=== PATIENT | female | born 1955 | race Two or more races ===

== ENCOUNTER 2017-04-04 21:13 | Inpatient (IN) | payer OTHER, MEDICAID ==
[~2017-04-04] VITALS: Ht 157.5 cm; Wt 48.4 kg
[~2017-04-04 21:13] MED LIST: ALBU1.257 NEB; AMLO10TA2 PO; ASP81EC PO; CARV25TA55 PO; FURO40TA4 PO; HYDR-2651 PO; LOSA100T27 PO; OMEP20CA74 PO; OXYB15TA12 PO
[2017-04-04 21:46] LABS: Basophils # (auto) 0 uL; Basophils % (auto) 0.4 % (0.0-2.0); CONDITION Y; DEFINITIVE SEE PRINTOUT; Eosinophils # (auto) 0.4 uL; Eosinophils % (auto) 3.9 % (0.0-7.0); Hematocrit 42.3 % (36.0-46.0); Hemoglobin 13.4 g/dL (12.2-16.2); Lymphocytes # (auto) 1.3 uL; Lymphocytes % (auto) 12.6 % (10.0-50.0); Mean Corpuscular Hemoglobin 26.1 pg (28.0-32.0); Mean Corpuscular Hgb Conc. 31.5 g/dL (32.0-36.0); Mean Corpuscular Volume 82.7 fL (80.0-100.0); Mean Platelet Volume 8.2 fL (7.4-10.4); Monocytes # (auto) 0.4 uL; Monocytes % (auto) 4.3 % (0.0-12.0); Neutrophils # (auto) 7.9 uL; Neutrophils % (auto) 78.8 % (37.0-80.0); Platelet Count (auto) 341 10^3/uL (140-450)
[2017-04-04 21:58] LABS: INR 0.95 (0.9-1.15); Partial Thromboplastin Time 25.5 sec (22.64-33.71); Prothrombin Time 10.4 sec (9.37-12.3)
[2017-04-04 22:15] LABS: Albumin 2.9 g/dL (3.4-5.0); BUN/Creatinine Ratio 25.3; Bilirubin, Total 0.4 mg/dL (0.2-1.0); Calcium 8.5 mg/dL (8.5-10.1); Magnesium 1.6 mg/dL (1.6-2.6); Potassium 3.5 mmol/L (3.5-5.1); Total Protein 6.6 g/dL (6.4-8.2)
[2017-04-04 22:23] LABS: B-Type Natriuretic Peptide 827.58 pg/mL (0-100)
[2017-04-04 22:26] LABS: Temperature: 22.5 C (20.0-25.0)
[2017-04-04] MEDS ORDERED: SODIUM CHLORIDE 0.9% 1,000 ML IV ONE (23:15)
[2017-04-04] MEDS ORDERED: ONDANSETRON HCL 4 MG/2 ML VIAL IV ONE (23:15)
[2017-04-04] MEDS ORDERED: MORPHINE SULFATE 4 MG/ML SYRG IV ONE (23:15)
[2017-04-05] VITALS (8 sets, daily range): BP systolic 116–148; BP diastolic 71–85
[2017-04-05] MEDS ORDERED: FUROSEMIDE 20 MG/2 ML VIAL IV ONE
[2017-04-05 00:44] LABS: Urine Bilirubin Negative (Negative); Urine Blood Negative /uL (Negative); Urine Color Yellow (Yellow); Urine Glucose Normal (Normal); Urine Hyaline Cast FEW /lpf (0 - 2); Urine Ketone Negative (Negative); Urine Nitrite Negative (Negative); Urine RBC 1 /hpf (0 - 4); Urine Squamous Epithelial Cell FEW /hpf (<5); Urine Urobilinogen Normal (Negative)
[2017-04-05] MEDS ORDERED: ONDANSETRON HCL 4 MG/2 ML VIAL IV PRN (01:30)
[2017-04-05] MEDS ORDERED: ACETAMINOPHEN 325 MG TAB PO PRN (01:30)
[2017-04-05] MEDS ORDERED: NITROGLYCERIN 0.4 MG SL TAB SL PRN (01:30)
[2017-04-05] MEDS ORDERED: MORPHINE SULF INJ 2 MG/ML SYRINGE 1ML IV PRN (01:30)
[2017-04-05] MEDS ORDERED: IPRATROPIUM BROM 0.5 MG/2.5ML INH SOL NEB PRN (01:30)
[2017-04-05] MEDS ORDERED: cefTRIAXone 1GM/50ML D5W 50 ML IV ONE (01:30)
[2017-04-05] MEDS: HYDROcodone-ACET 5/325MG TAB PO PRN ×2 (01:58→18:12)
[2017-04-05] MEDS: MORPHINE SULF INJ 2 MG/ML SYRINGE 1ML IV PRN ×3 (03:09→21:07)
[2017-04-05] MEDS ORDERED: LISI-275 PO (04:01)
[2017-04-05] MEDS ORDERED: POTA10TA79 PO (04:01)
[2017-04-05] MEDS ORDERED: ISO60SRT PO (04:01)
[2017-04-05] MEDS ORDERED: LORA1CAP PO (04:01)
[2017-04-05] MEDS: hydrALAZINE HCL 25 MG TAB PO SCH ×2 (08:22→22:00)
[2017-04-05] MEDS: OXYBUTYNIN CHL 5 MG TAB PO SCH (08:26)
[2017-04-05] MEDS: LOSARTAN POTASSIUM 50 MG TAB PO SCH (08:26)
[2017-04-05] MEDS: ASPirin 81 mg TAB PO SCH (08:27)
[2017-04-05] MEDS: PANTOPRAZOLE 40 MG TAB PO SCH (08:27)
[2017-04-05] MEDS: FUROSEMIDE 40 MG TAB PO SCH (08:27)
[2017-04-05] MEDS: ENOXAPARIN SOD 40 MG/0.4 ML SYRINGE SC SCH (08:27)
[2017-04-05] MEDS: CARVEDILOL 12.5 MG TAB PO SCH ×2 (08:28→22:07)
[2017-04-05] MEDS ORDERED: GASTROGRAFIN 120 ML SOL ONE (14:30)
[2017-04-05] MEDS: BOOST PLUS 8 ounce PO SCH (18:10)
[2017-04-05] MEDS ORDERED: cefTRIAXone 1GM/50ML D5W 50 ML IV SCH (22:00)
[2017-04-05] MEDS ORDERED: ATORVASTATIN 20 MG TAB PO SCH (22:00)
[2017-04-06] MEDS: MORPHINE SULF INJ 2 MG/ML SYRINGE 1ML IV PRN ×2 (04:05→10:06)
[2017-04-06 04:53] VITALS: BP 127/61
[2017-04-06 06:05] LABS: Basophils # (auto) 0 uL; Basophils % (auto) 0.5 % (0.0-2.0); CONDITION Y; DEFINITIVE SEE PRINTOUT; Eosinophils # (auto) 0.3 uL; Eosinophils % (auto) 6.9 % (0.0-7.0); Hematocrit 36.7 % (36.0-46.0); Hemoglobin 11.8 g/dL (12.2-16.2); Lymphocytes # (auto) 1.6 uL; Lymphocytes % (auto) 32.1 % (10.0-50.0); Mean Corpuscular Hemoglobin 26.5 pg (28.0-32.0); Mean Corpuscular Hgb Conc. 32.1 g/dL (32.0-36.0); Mean Corpuscular Volume 82.4 fL (80.0-100.0); Mean Platelet Volume 8.2 fL (7.4-10.4); Monocytes # (auto) 0.4 uL; Monocytes % (auto) 8.4 % (0.0-12.0); Neutrophils # (auto) 2.6 uL; Neutrophils % (auto) 52.1 % (37.0-80.0); Platelet Count (auto) 305 10^3/uL (140-450); Red Cell Distribution Width 18.7 % (11.6-16.0); White Blood Cell 4.9 10^3/uL (4.4-10.8)
[2017-04-06 06:53] LABS: Albumin 2.7 g/dL (3.4-5.0); BUN/Creatinine Ratio 20.9; Bilirubin, Total 0.3 mg/dL (0.2-1.0); Calcium 8.6 mg/dL (8.5-10.1); Magnesium 1.9 mg/dL (1.6-2.6); Phosphorus 3.6 mg/dL (2.5-4.90); Potassium 3.7 mmol/L (3.5-5.1); Total Protein 6.4 g/dL (6.4-8.2)
[2017-04-06 09:00] VITALS: BP 122/84
[2017-04-06] MEDS ORDERED: metroNIDAZOLE 500 MG TAB PO ONE (09:15)
[2017-04-06] MEDS ORDERED: AMOXICILLIN/CLAVUL 875 MG TAB PO ONE (09:15)
[2017-04-06] MEDS: FUROSEMIDE 40 MG TAB PO SCH (10:00)
[2017-04-06] MEDS: hydrALAZINE HCL 25 MG TAB PO SCH (10:06)
[2017-04-06] MEDS: ENOXAPARIN SOD 40 MG/0.4 ML SYRINGE SC SCH (10:06)
[2017-04-06] MEDS: CARVEDILOL 12.5 MG TAB PO SCH (10:06)
[2017-04-06] MEDS: LOSARTAN POTASSIUM 50 MG TAB PO SCH (10:07)
[2017-04-06] MEDS: ASPirin 81 mg TAB PO SCH (10:07)
[2017-04-06] MEDS: PANTOPRAZOLE 40 MG TAB PO SCH (10:07)
[2017-04-06] MEDS: OXYBUTYNIN CHL 5 MG TAB PO SCH (10:08)
[2017-04-06] MEDS: BOOST PLUS 8 ounce PO SCH ×2 (11:57→12:00)
[2017-04-06 13:00] VITALS: BP 123/76
[2017-04-06 15:10] VITALS: BP 123/76
[2017-04-09] MEDS ORDERED: ALBUAER3 IN (02:00)
[2017-04-09] MEDS ORDERED: AMOX200C PO (02:00)
[2017-04-09] MEDS ORDERED: ERGO1CAP6 PO (02:00)
[2017-04-09] MEDS ORDERED: METR500T14 PO (02:00)
[2017-04-10] MEDS ORDERED: SUCR1TAB38 OR (16:12)
== END 2017-04-06 16:55 | disposition home or self-care (01) | DRG 280 ==
LOC: EDBD 21:13 → ER 21:26 → TELE 21:27 → TELE-CENTR 04-05 02:25
PROVIDERS: ADMIT Nurse Practitioner; ATTEND Internal Medicine
DX: I13.0 Hypertensive heart and chronic kidney disease with heart failure and stage 1 through stage 4 chronic kidney disease, or unspecified chronic kidney disease (principal); I50.43 Acute on chronic combined systolic (congestive) and diastolic (congestive) heart failure; I21.3 ST elevation (STEMI) myocardial infarction of unspecified site; E11.22 Type 2 diabetes mellitus with diabetic chronic kidney disease; J98.11 Atelectasis; N39.0 Urinary tract infection, site not specified; Z95.1 Presence of aortocoronary bypass graft; Z90.710 Acquired absence of both cervix and uterus; I08.1 Rheumatic disorders of both mitral and tricuspid valves; K52.9 Noninfective gastroenteritis and colitis, unspecified; F15.10 Other stimulant abuse, uncomplicated; I25.10 Atherosclerotic heart disease of native coronary artery without angina pectoris; I25.5 Ischemic cardiomyopathy; J44.9 Chronic obstructive pulmonary disease, unspecified; K21.9 Gastro-esophageal reflux disease without esophagitis; K57.30 Diverticulosis of large intestine without perforation or abscess without bleeding; K62.89 Other specified diseases of anus and rectum; N18.9 Chronic kidney disease, unspecified; K29.70 Gastritis, unspecified, without bleeding; M19.90 Unspecified osteoarthritis, unspecified site; N20.0 Calculus of kidney; Z83.3 Family history of diabetes mellitus; I25.2 Old myocardial infarction; Z90.49 Acquired absence of other specified parts of digestive tract; Z95.810 Presence of automatic (implantable) cardiac defibrillator
CPT/HCPCS: 36415; 71010; 74176; 74250; 80053; 80307; 81001; 82150; 83690; 83735; 83880; 84100; 84484; 85025; 85610; 85730; 93005; 93306; 96361; 96365; 96375; J0696; J2405

== ENCOUNTER 2017-04-24 03:59 | Inpatient (IN) | payer MEDICAID, OTHER ==
[~2017-04-24] VITALS: Ht 157.5 cm; Wt 53.7 kg
[~2017-04-24 03:59] MED LIST changes: -ALBU1.257 NEB; +ALBUAER3 IN; -AMLO10TA2 PO; +ERGO1CAP6 PO; -HYDR-2651 PO; +ISO60SRT PO; +LISI-275 PO; +LORA1CAP PO; -LOSA100T27 PO; +METR500T14 PO; -OXYB15TA12 PO; +POTA10TA79 PO; +SUCR1TAB38 OR
[2017-04-24 04:30] LABS: Basophils # (auto) 0.1 uL; Basophils % (auto) 1.3 % (0.0-2.0); Eosinophils # (auto) 0.4 uL; Eosinophils % (auto) 6.4 % (0.0-7.0); Hematocrit 37.9 % (36.0-46.0); Hemoglobin 12.2 g/dL (12.2-16.2); Lymphocytes # (auto) 1.4 uL; Mean Corpuscular Hemoglobin 26.6 pg (28.0-32.0); Mean Corpuscular Hgb Conc. 32.2 g/dL (32.0-36.0); Mean Corpuscular Volume 82.5 fL (80.0-100.0); Monocytes # (auto) 0.4 uL; Monocytes % (auto) 6.2 % (0.0-12.0); Neutrophils # (auto) 4.6 uL; Neutrophils % (auto) 66.1 % (37.0-80.0); Nucleated Red Blood Cells % 0.1 %; Platelet Count (auto) 329 10^3/uL (140-450); Red Cell Distribution Width 19.9 % (11.6-16.0)
[2017-04-24] MEDS ORDERED: ONDANSETRON HCL 4 MG/2 ML VIAL IV ONE (04:45)
[2017-04-24] MEDS ORDERED: MORPHINE SULF INJ 2 MG/ML SYRINGE 1ML IV ONE (04:45)
[2017-04-24 04:46] LABS: INR 0.92 (0.9-1.15); Partial Thromboplastin Time 24.7 sec (22.64-33.71)
[2017-04-24 05:05] LABS: Albumin 2.8 g/dL (3.4-5.0); BUN/Creatinine Ratio 26.7; Bilirubin, Total 0.2 mg/dL (0.2-1.0); Calcium 8.7 mg/dL (8.5-10.1); Magnesium 1.9 mg/dL (1.6-2.6); Potassium 3.9 mmol/L (3.5-5.1); Total Protein 6.7 g/dL (6.4-8.2)
[2017-04-24 05:20] LABS: Temperature: 22.2 C (20.0-25.0)
[2017-04-24 05:50] LABS: Urine Bilirubin Negative (Negative); Urine Blood Negative /uL (Negative); Urine Ca Oxalate Crystal FEW (None Seen); Urine Color Yellow (Yellow); Urine Glucose Normal (Normal); Urine Ketone Negative (Negative); Urine Mucus FEW (None Seen); Urine Nitrite Negative (Negative); Urine RBC 5 /hpf (0 - 4); Urine Squamous Epithelial Cell FEW /hpf (<5); Urine Urobilinogen Normal (Negative)
[2017-04-24] MEDS ORDERED: CARVEDILOL 12.5 MG TAB PO ONE (06:00)
[2017-04-24] MEDS ORDERED: ACETAMINOPHEN 325 MG TAB PO PRN (07:15)
[2017-04-24] MEDS ORDERED: NITROGLYCERIN 0.4 MG SL TAB SL PRN (07:15)
[2017-04-24] MEDS ORDERED: DEXTROSE (50%) 50ML SYRG IV PRN (07:15)
[2017-04-24] MEDS ORDERED: ENOXAPARIN SOD 60 MG/0.6 ML SYRINGE SC SCH ×2 (07:30→22:00)
[2017-04-24] MEDS: SODIUM CHLORIDE 0.9% 1,000 ML IV SCH (07:41)
[2017-04-24] MEDS: cefTRIAXone 1GM/50ML D5W 50 ML IV SCH (07:42)
[2017-04-24] MEDS: POTASSIUM CHL 10 Meq TABLET PO SCH (09:35)
[2017-04-24] MEDS: FUROSEMIDE 40 MG TAB PO SCH (09:36)
[2017-04-24] MEDS: ISOSORBIDE MONONITRATE 60 MG TAB PO SCH (09:37)
[2017-04-24] MEDS: LISINOPRIL 5 MG TAB PO SCH (09:37)
[2017-04-24 09:57] VITALS: BP 149/93
[2017-04-24] MEDS ORDERED: ASPirin 81 mg TAB PO SCH (10:00)
[2017-04-24] MEDS ORDERED: FAMOTIDINE 20 MG TAB PO SCH (10:00)
[2017-04-24] MEDS ORDERED: NITR0.4S29 SL (10:24)
[2017-04-24] MEDS ORDERED: ACET250T3 PO (10:24)
[2017-04-24] MEDS ORDERED: FLUT500M2 IN (10:24)
[2017-04-24] MEDS: MORPHINE SULF INJ 2 MG/ML SYRINGE 1ML IV PRN ×2 (11:06→17:45)
[2017-04-24] MEDS: InsuLIN REG 1unit/0.01ml Soln (100units/ml) SC SCH ×3 (11:24→22:20)
[2017-04-24] MEDS: ACCU-CHEK COMFORT CURVE STRIP VI SCH ×3 (11:24→22:19)
[2017-04-24 11:44] VITALS: BP 131/78
[2017-04-24 17:00] VITALS: BP 121/76
[2017-04-24] MEDS ORDERED: CLOPIDOGREL BISULFATE 75 MG TAB PO ONE (17:30)
[2017-04-24] MEDS: SUCRALFATE 1 GM TAB PO SCH (17:32)
[2017-04-24 19:34] VITALS: BP 120/71
[2017-04-24] MEDS: ATORVASTATIN 20 MG TAB PO SCH (21:30)
[2017-04-24] MEDS: CARVEDILOL 12.5 MG TAB PO SCH (22:00)
[2017-04-25] VITALS: BP 150/88
[2017-04-25 01:12] LABS: Albumin 2.6 g/dL (3.4-5.0); BUN/Creatinine Ratio 21.7; Calcium 8.2 mg/dL (8.5-10.1); Potassium 4.2 mmol/L (3.5-5.1)
[2017-04-25 01:31] LABS: Bilirubin, Total 0.3 mg/dL (0.2-1.0); Total Protein 6.4 g/dL (6.4-8.2)
[2017-04-25] MEDS: MORPHINE SULF INJ 2 MG/ML SYRINGE 1ML IV PRN ×2 (01:49→10:00)
[2017-04-25 04:00] VITALS: BP 139/84
[2017-04-25 05:20] LABS: Basophils # (auto) 0.1 uL; Eosinophils # (auto) 0.6 uL; Eosinophils % (auto) 8.1 % (0.0-7.0); Hematocrit 35.5 % (36.0-46.0); Hemoglobin 11.7 g/dL (12.2-16.2); Lymphocytes # (auto) 1.8 uL; Lymphocytes % (auto) 23.4 % (10.0-50.0); Mean Corpuscular Hemoglobin 27.3 pg (28.0-32.0); Mean Corpuscular Hgb Conc. 32.9 g/dL (32.0-36.0); Mean Corpuscular Volume 82.9 fL (80.0-100.0); Mean Platelet Volume 8.2 fL (7.4-10.4); Monocytes # (auto) 0.8 uL; Monocytes % (auto) 9.9 % (0.0-12.0); Neutrophils # (auto) 4.4 uL; Neutrophils % (auto) 57.6 % (37.0-80.0); Nucleated Red Blood Cells % 0.1 %; Platelet Count (auto) 336 10^3/uL (140-450); White Blood Cell 7.6 10^3/uL (4.4-10.8)
[2017-04-25 05:28] LABS: Red Cell Distribution Width 20.1 % (11.6-16.0)
[2017-04-25] MEDS: InsuLIN REG 1unit/0.01ml Soln (100units/ml) SC SCH ×4 (06:00→23:42)
[2017-04-25] MEDS: ACCU-CHEK COMFORT CURVE STRIP VI SCH ×4 (06:26→23:42)
[2017-04-25] MEDS: SUCRALFATE 1 GM TAB PO SCH ×3 (06:26→16:10)
[2017-04-25] MEDS: SODIUM CHLORIDE 0.9% 1,000 ML IV SCH (06:27)
[2017-04-25] MEDS: ASPirin 81 mg TAB PO SCH (06:51)
[2017-04-25] MEDS: CLOPIDOGREL BISULFATE 75 MG TAB PO SCH ×2 (06:52→12:08)
[2017-04-25] MEDS: ENOXAPARIN SOD 60 MG/0.6 ML SYRINGE SC SCH ×2 (06:52→22:47)
[2017-04-25 07:30] VITALS: BP 155/90
[2017-04-25] MEDS: cefTRIAXone 1GM/50ML D5W 50 ML IV SCH (07:56)
[2017-04-25] MEDS: FUROSEMIDE 40 MG TAB PO SCH (10:00)
[2017-04-25] MEDS: POTASSIUM CHL 10 Meq TABLET PO SCH (10:00)
[2017-04-25] MEDS: PANTOPRAZOLE 40 MG TAB PO SCH (10:00)
[2017-04-25] MEDS ORDERED: CLOPIDOGREL BISULFATE 75 MG TAB PO SCH (10:00)
[2017-04-25 11:41] LABS: Anisocytosis Slight
[2017-04-25 11:42] LABS: Burr Cells FEW; Hypochromia Slight; Ovalocytes FEW; Platelet Estimate Adequate
[2017-04-25] MEDS ORDERED: IOHEXOL 350 MG/ML 100ML IJ ONE ×3 (11:48→14:13)
[2017-04-25] MEDS ORDERED: LIDOCAINE 2%HCL (LOCAL ANESTH.) INJ 20ML MDV ONE ×2 (11:49→14:13)
[2017-04-25 12:00] VITALS: BP 152/98
[2017-04-25] MEDS: ISOSORBIDE MONONITRATE 60 MG TAB PO SCH (12:09)
[2017-04-25] MEDS: LISINOPRIL 5 MG TAB PO SCH (12:10)
[2017-04-25] MEDS: CARVEDILOL 12.5 MG TAB PO SCH ×2 (12:10→22:35)
[2017-04-25] MEDS ORDERED: ANGIOMAX 250 MG VIAL IV ONE (12:46)
[2017-04-25] MEDS ORDERED: SODIUM CHL 0.9% 50 ML ONE (12:47)
[2017-04-25] MEDS ORDERED: MIDAZOLAM HCL 1MG/1ML-2 ML VIAL ONE (12:47)
[2017-04-25] MEDS ORDERED: fentaNYL CITRATE 100 MCG/2 ML VL ONE (12:47)
[2017-04-25] MEDS ORDERED: EPTIFIBATIDE INJ (2MG/ML) 10ML VIAL IV ONE (13:04)
[2017-04-25 16:00] VITALS: BP 139/80
[2017-04-25] MEDS: HYDROcodone-ACET 5/325MG TAB PO PRN ×2 (16:11→22:57)
[2017-04-25] MEDS: ONDANSETRON HCL 4 MG/2 ML VIAL IV PRN ×4 (18:50→20:46)
[2017-04-25 19:45] VITALS: BP 115/64
[2017-04-25] MEDS: ATORVASTATIN 20 MG TAB PO SCH (22:31)
[2017-04-26 05:53] LABS: Basophils # (auto) 0.1 uL; Eosinophils # (auto) 0.4 uL; Eosinophils % (auto) 7.3 % (0.0-7.0); Hemoglobin 11.3 g/dL (12.2-16.2); Lymphocytes # (auto) 1.2 uL; Lymphocytes % (auto) 20.6 % (10.0-50.0); Mean Corpuscular Hemoglobin 26.8 pg (28.0-32.0); Mean Corpuscular Hgb Conc. 32.3 g/dL (32.0-36.0); Mean Corpuscular Volume 82.8 fL (80.0-100.0); Monocytes # (auto) 0.5 uL; Monocytes % (auto) 8.2 % (0.0-12.0); Neutrophils # (auto) 3.7 uL; Neutrophils % (auto) 62.9 % (37.0-80.0); Platelet Count (auto) 302 10^3/uL (140-450); Red Cell Distribution Width 19.4 % (11.6-16.0); White Blood Cell 5.8 10^3/uL (4.4-10.8)
[2017-04-26] MEDS: InsuLIN REG 1unit/0.01ml Soln (100units/ml) SC SCH ×4 (06:00→23:43)
[2017-04-26] MEDS: ACCU-CHEK COMFORT CURVE STRIP VI SCH ×4 (06:19→23:44)
[2017-04-26] MEDS: SUCRALFATE 1 GM TAB PO SCH ×3 (06:22→16:05)
[2017-04-26] MEDS: HYDROcodone-ACET 5/325MG TAB PO PRN ×4 (06:23→22:05)
[2017-04-26 06:24] LABS: BUN/Creatinine Ratio 23.7; Calcium 8.4 mg/dL (8.5-10.1); Magnesium 2.1 mg/dL (1.6-2.6); Phosphorus 4.4 mg/dL (2.5-4.90); Potassium 4.8 mmol/L (3.5-5.1)
[2017-04-26] MEDS: SODIUM CHLORIDE 0.9% 1,000 ML IV SCH (07:10)
[2017-04-26 07:30] VITALS: BP 124/54
[2017-04-26] MEDS: cefTRIAXone 1GM/50ML D5W 50 ML IV SCH (08:17)
[2017-04-26] MEDS: POTASSIUM CHL 10 Meq TABLET PO SCH (10:36)
[2017-04-26] MEDS: LISINOPRIL 5 MG TAB PO SCH (10:37)
[2017-04-26] MEDS: ENOXAPARIN SOD 60 MG/0.6 ML SYRINGE SC SCH ×2 (10:37→21:42)
[2017-04-26] MEDS: ISOSORBIDE MONONITRATE 60 MG TAB PO SCH (10:38)
[2017-04-26] MEDS: ASPirin 81 mg TAB PO SCH (10:39)
[2017-04-26] MEDS: PANTOPRAZOLE 40 MG TAB PO SCH (10:40)
[2017-04-26] MEDS: FUROSEMIDE 40 MG TAB PO SCH (10:40)
[2017-04-26] MEDS: CARVEDILOL 12.5 MG TAB PO SCH ×2 (10:40→22:10)
[2017-04-26 11:59] VITALS: BP 137/73
[2017-04-26 16:00] VITALS: BP 121/65
[2017-04-26 20:00] VITALS: BP 116/62
[2017-04-26] MEDS: ATORVASTATIN 20 MG TAB PO SCH (21:42)
[2017-04-27] MEDS: MORPHINE SULF INJ 2 MG/ML SYRINGE 1ML IV PRN (04:22)
[2017-04-27 04:57] LABS: Basophils # (auto) 0 uL; Basophils % (auto) 0.9 % (0.0-2.0); Eosinophils # (auto) 0.4 uL; Eosinophils % (auto) 8.2 % (0.0-7.0); Hematocrit 34.5 % (36.0-46.0); Hemoglobin 11.1 g/dL (12.2-16.2); Lymphocytes # (auto) 1.4 uL; Mean Corpuscular Hemoglobin 26.7 pg (28.0-32.0); Mean Corpuscular Hgb Conc. 32.1 g/dL (32.0-36.0); Mean Corpuscular Volume 83.2 fL (80.0-100.0); Mean Platelet Volume 7.4 fL (6.9-10.8); Monocytes # (auto) 0.4 uL; Monocytes % (auto) 8.4 % (0.0-12.0); Neutrophils # (auto) 2.8 uL; Neutrophils % (auto) 54.5 % (37.0-80.0); Nucleated Red Blood Cells % 0.1 %; Platelet Count (auto) 285 10^3/uL (140-450); Red Cell Distribution Width 19.8 % (11.8-14.3); White Blood Cell 5.1 10^3/uL (4.4-10.8)
[2017-04-27 05:25] LABS: BUN/Creatinine Ratio 25.5; Calcium 8.6 mg/dL (8.5-10.1); Magnesium 1.9 mg/dL (1.6-2.6); Potassium 4.3 mmol/L (3.5-5.1)
[2017-04-27] MEDS: InsuLIN REG 1unit/0.01ml Soln (100units/ml) SC SCH ×2 (06:00→11:56)
[2017-04-27] MEDS: ACCU-CHEK COMFORT CURVE STRIP VI SCH ×2 (06:08→11:56)
[2017-04-27] MEDS: SUCRALFATE 1 GM TAB PO SCH ×2 (07:47→11:55)
[2017-04-27 08:00] VITALS: BP 136/76
[2017-04-27] MEDS: SODIUM CHLORIDE 0.9% 1,000 ML IV SCH (08:21)
[2017-04-27] MEDS: HYDROcodone-ACET 5/325MG TAB PO PRN ×2 (08:27→12:04)
[2017-04-27] MEDS: cefTRIAXone 1GM/50ML D5W 50 ML IV SCH (09:31)
[2017-04-27] MEDS: LISINOPRIL 5 MG TAB PO SCH (09:36)
[2017-04-27] MEDS: PANTOPRAZOLE 40 MG TAB PO SCH (09:36)
[2017-04-27] MEDS: CLOPIDOGREL BISULFATE 75 MG TAB PO SCH (09:37)
[2017-04-27] MEDS: ASPirin 81 mg TAB PO SCH (09:37)
[2017-04-27] MEDS: CARVEDILOL 12.5 MG TAB PO SCH (09:37)
[2017-04-27] MEDS: ENOXAPARIN SOD 60 MG/0.6 ML SYRINGE SC SCH (09:38)
[2017-04-27] MEDS: FUROSEMIDE 40 MG TAB PO SCH (09:38)
[2017-04-27] MEDS: POTASSIUM CHL 10 Meq TABLET PO SCH (09:38)
[2017-04-27] MEDS: ISOSORBIDE MONONITRATE 60 MG TAB PO SCH (09:38)
[2017-04-27 10:00] VITALS: BP 136/76
[2017-04-27 12:00] VITALS: BP 111/63
== END 2017-04-27 13:07 | disposition home health service (06) | DRG 174 ==
LOC: ER 03:59 → EDBD 03:59 → TELE 04:00 → TELE-WESTW 09:22 → DOU IN ICU 20:27
PROVIDERS: ADMIT Nurse Practitioner; ATTEND Internal Medicine
PROC: 027034Z Dilation of Coronary Artery, One Artery with Drug-eluting Intraluminal Device, Percutaneous Approach (ICD-10-PCS; principal; 2017-04-25)
PROC: 4A023N7 Measurement of Cardiac Sampling and Pressure, Left Heart, Percutaneous Approach (ICD-10-PCS; 2017-04-25)
PROC: B2111ZZ Fluoroscopy of Multiple Coronary Arteries using Low Osmolar Contrast (ICD-10-PCS; 2017-04-25)
PROC: B2181ZZ Fluoroscopy of Left Internal Mammary Bypass Graft using Low Osmolar Contrast (ICD-10-PCS; 2017-04-25)
PROC: B41F1ZZ Fluoroscopy of Right Lower Extremity Arteries using Low Osmolar Contrast (ICD-10-PCS; 2017-04-25)
DX: I21.29 ST elevation (STEMI) myocardial infarction involving other sites (principal); I11.0 Hypertensive heart disease with heart failure; I50.22 Chronic systolic (congestive) heart failure; K29.60 Other gastritis without bleeding; E11.65 Type 2 diabetes mellitus with hyperglycemia; J44.9 Chronic obstructive pulmonary disease, unspecified; N39.0 Urinary tract infection, site not specified; F15.10 Other stimulant abuse, uncomplicated; I25.10 Atherosclerotic heart disease of native coronary artery without angina pectoris; I25.5 Ischemic cardiomyopathy; F17.210 Nicotine dependence, cigarettes, uncomplicated; Z82.5 Family history of asthma and other chronic lower respiratory diseases; Z83.3 Family history of diabetes mellitus; Z91.19 Patient's noncompliance with other medical treatment and regimen; Z95.1 Presence of aortocoronary bypass graft; Z95.810 Presence of automatic (implantable) cardiac defibrillator; Z90.710 Acquired absence of both cervix and uterus; Z79.899 Other long term (current) drug therapy; Z71.3 Dietary counseling and surveillance
CPT/HCPCS: 92928; 93459; 96365; 96372; 96375; 99285; G0278; 36415; 71010; 80048; 80053; 80307; 81001; 82962; 83735; 83880; 84100; 84484; 85025; 85379; 85610; 85730; 87081; 93005; 94761; 99152; 99153; C1874; J0696; J1815; J2250; J2405

== ENCOUNTER 2017-12-28 20:34 | Inpatient (IN) | payer OTHER, MEDICAID ==
[~2017-12-28] VITALS: Ht 157.5 cm; Wt 53.8 kg
[~2017-12-28 20:34] MED LIST changes: +ACET250T3 PO; -ALBUAER3 IN; +FLUT500M2 IN; +LORA10CA12 PO; -LORA1CAP PO; +NITR0.4S29 SL; -OMEP20CA74 PO; -POTA10TA79 PO
[2017-12-28 22:55] LABS: Basophils # (auto) 0 uL; Basophils % (auto) 0.5 % (0.0-2.0); Eosinophils # (auto) 0.3 uL; Hematocrit 39.2 % (36.0-46.0); Hemoglobin 12.9 g/dL (12.2-16.2); Lymphocytes # (auto) 1.5 uL; Lymphocytes % (auto) 19.4 % (10.0-50.0); Mean Corpuscular Hemoglobin 29.4 pg (28.0-32.0); Mean Corpuscular Hgb Conc. 32.9 g/dL (32.0-36.0); Mean Corpuscular Volume 89.5 fL (80.0-100.0); Monocytes # (auto) 0.4 uL; Monocytes % (auto) 5.1 % (0.0-12.0); Neutrophils # (auto) 5.4 uL; Platelet Count (auto) 291 10^3/uL (140-450); Red Blood Cells 4.38 10^6/uL (4.0-5.20); Red Cell Distribution Width 17.2 % (11.8-14.3); White Blood Cell 7.6 10^3/uL (4.4-10.8)
[2017-12-28 23:00] LABS: Albumin 3.1 g/dL (3.4-5.0); Calcium 8.8 mg/dL (8.5-10.1); Magnesium 1.9 mg/dL (1.6-2.6); Potassium 3.8 mmol/L (3.5-5.1)
[2017-12-28 23:02] LABS: BUN/Creatinine Ratio 29.1
[2017-12-28 23:10] LABS: INR 0.93 (0.9-1.15); Prothrombin Time 10.1 sec (9.37-12.3)
[2017-12-28 23:15] LABS: Bilirubin, Total 0.3 mg/dL (0.2-1.0); Total Protein 7.3 g/dL (6.4-8.2)
[2017-12-28] MEDS ORDERED: MORPHINE SULFATE 4 MG/ML SYR/VIAL ONE (23:20)
[2017-12-28] MEDS ORDERED: ONDANSETRON HCL 4 MG/2 ML VIAL ONE (23:20)
[2017-12-28] MEDS ORDERED: ONDANSETRON HCL 4 MG/2 ML VIAL IV ONE (23:45)
[2017-12-28] MEDS ORDERED: MORPHINE SULFATE 4 MG/ML SYR/VIAL IV ONE (23:45)
[2017-12-29] MEDS ORDERED: ONDANSETRON HCL 4 MG/2 ML VIAL IV PRN (06:45)
[2017-12-29] MEDS ORDERED: FUROSEMIDE 40 MG/4 ML VIAL IV ONE (06:45)
[2017-12-29] MEDS ORDERED: DEXTROSE (50%) 50ML SYRG IV PRN (06:45)
[2017-12-29] MEDS ORDERED: ACETAMINOPHEN 325 MG TAB PO PRN (06:45)
[2017-12-29] MEDS ORDERED: ENOXAPARIN SOD 100 MG/1 ML SYRINGE SC ONE (06:45)
[2017-12-29] MEDS ORDERED: NITROGLYCERIN 0.4 MG SL TAB SL PRN (06:45)
[2017-12-29] MEDS ORDERED: DOCUSATE SOD 100 MG CAP PO PRN (06:45)
[2017-12-29] MEDS: MORPHINE SULFATE 4 MG/ML SYR/VIAL IV PRN ×2 (08:02→14:32)
[2017-12-29] MEDS ORDERED: ENOXAPARIN SOD 40 MG/0.4 ML SYRINGE SC SCH (10:00)
[2017-12-29 10:30] VITALS: BP 186/105
[2017-12-29] MEDS: ASPirin 81 mg TAB PO SCH (10:55)
[2017-12-29] MEDS: FAMOTIDINE 20 MG TAB PO SCH ×2 (10:55→22:27)
[2017-12-29] MEDS: FUROSEMIDE 40 MG TAB PO SCH (10:56)
[2017-12-29] MEDS: LISINOPRIL 5 MG TAB PO SCH (10:57)
[2017-12-29] MEDS: CARVEDILOL 12.5 MG TAB PO SCH ×2 (10:57→22:28)
[2017-12-29] MEDS: ISOSORBIDE MONONITRATE 60 MG TAB PO SCH (10:58)
[2017-12-29] MEDS: ACCU-CHEK COMFORT CURVE STRIP VI SCH ×2 (12:15→19:14)
[2017-12-29] MEDS: InsuLIN REG 1unit/0.01ml Soln (100units/ml) SC SCH ×2 (12:48→18:00)
[2017-12-29] MEDS ORDERED: CLOPIDOGREL 300 MG TAB PO ONE (15:00)
[2017-12-29] MEDS ORDERED: ENOXAPARIN SOD 60 MG/0.6 ML SYRINGE SC ONE (15:15)
[2017-12-29 17:00] VITALS: BP 115/71
[2017-12-29 20:00] VITALS: BP 133/75
[2017-12-29] MEDS ORDERED: MORPHINE SULFATE 8mg/ml INJ SDV IV PRN (20:45)
[2017-12-29 21:45] VITALS: BP 133/75
[2017-12-29] MEDS: ENOXAPARIN SOD 60 MG/0.6 ML SYRINGE SC SCH (22:29)
[2017-12-30] MEDS: ACCU-CHEK COMFORT CURVE STRIP VI SCH ×5 (00:26→23:36)
[2017-12-30] MEDS: HYDROcodone-ACET 5/325MG TAB PO PRN ×4 (03:18→21:44)
[2017-12-30 04:38] VITALS: BP 129/74
[2017-12-30] MEDS: InsuLIN REG 1unit/0.01ml Soln (100units/ml) SC SCH ×5 (06:41→23:36)
[2017-12-30 07:08] LABS: Basophils # (auto) 0 uL; Basophils % (auto) 0.5 % (0.0-2.0); Eosinophils # (auto) 0.3 uL; Eosinophils % (auto) 4.9 % (0.0-7.0); Hematocrit 36.1 % (36.0-46.0); Lymphocytes # (auto) 1.4 uL; Mean Corpuscular Hemoglobin 29.8 pg (28.0-32.0); Mean Corpuscular Hgb Conc. 33.3 g/dL (32.0-36.0); Mean Corpuscular Volume 89.5 fL (80.0-100.0); Monocytes # (auto) 0.5 uL; Monocytes % (auto) 6.7 % (0.0-12.0); Neutrophils # (auto) 4.6 uL; Neutrophils % (auto) 66.9 % (37.0-80.0); Platelet Count (auto) 277 10^3/uL (140-450); Red Blood Cells 4.03 10^6/uL (4.0-5.20); Red Cell Distribution Width 16.7 % (11.8-14.3); White Blood Cell 6.8 10^3/uL (4.4-10.8)
[2017-12-30 07:35] LABS: Albumin 2.7 g/dL (3.4-5.0); BUN/Creatinine Ratio 33.6; Calcium 8.4 mg/dL (8.5-10.1); Potassium 3.8 mmol/L (3.5-5.1)
[2017-12-30 07:48] LABS: Bilirubin, Total 0.3 mg/dL (0.2-1.0); Total Protein 6.4 g/dL (6.4-8.2)
[2017-12-30 09:09] VITALS: BP 139/89
[2017-12-30] MEDS ORDERED: BUMETANIDE (0.25MG/ML) 4 ML VIAL IV ONE (09:15)
[2017-12-30] MEDS: FAMOTIDINE 20 MG TAB PO SCH ×2 (10:04→21:42)
[2017-12-30] MEDS: CARVEDILOL 12.5 MG TAB PO SCH ×2 (10:04→21:41)
[2017-12-30] MEDS: ISOSORBIDE MONONITRATE 60 MG TAB PO SCH (10:05)
[2017-12-30] MEDS: ASPirin 81 mg TAB PO SCH (10:05)
[2017-12-30] MEDS: LISINOPRIL 5 MG TAB PO SCH (10:06)
[2017-12-30] MEDS: CLOPIDOGREL BISULFATE 75 MG TAB PO SCH (10:06)
[2017-12-30] MEDS: FUROSEMIDE 40 MG TAB PO SCH (10:06)
[2017-12-30] MEDS: ENOXAPARIN SOD 60 MG/0.6 ML SYRINGE SC SCH ×2 (10:07→21:43)
[2017-12-30 12:22] LABS: Urine Bacteria NONE SEEN /hpf (None Seen); Urine Blood TRACE /uL (Negative); Urine Specific Gravity 1.013 (1.001-1.035); Urine WBC <1 /hpf (0 - 5)
[2017-12-30 12:45] LABS: Alcohol, Urine < 3.0 mg/dL (0-5); Amphetamine Screen, Urine NEGATIVE (NEGATIVE); Barbiturate Scree,Urine NEGATIVE (NEGATIVE); Benzodiazephine Screen, Urine NEGATIVE (NEGATIVE); Cannabinoid Screen, Urine NEGATIVE (NEGATIVE); Cocaine Screen, Urine NEGATIVE (NEGATIVE); Phencyclidine Screen, Urine NEGATIVE (NEGATIVE)
[2017-12-30 13:00] VITALS: BP 125/84
[2017-12-30 13:35] LABS: Opiate Scree,Urine POSITIVE (NEGATIVE)
[2017-12-30 16:57] VITALS: BP 121/81
[2017-12-30 22:00] VITALS: BP 116/65
[2017-12-31] MEDS: HYDROcodone-ACET 5/325MG TAB PO PRN ×3 (02:54→16:48)
[2017-12-31 05:00] VITALS: BP 113/68
[2017-12-31] MEDS: ACCU-CHEK COMFORT CURVE STRIP VI SCH ×2 (05:37→13:05)
[2017-12-31] MEDS: InsuLIN REG 1unit/0.01ml Soln (100units/ml) SC SCH ×2 (05:37→13:05)
[2017-12-31 09:26] VITALS: BP 137/76
[2017-12-31] MEDS: ASPirin 81 mg TAB PO SCH (09:44)
[2017-12-31] MEDS: FAMOTIDINE 20 MG TAB PO SCH (09:44)
[2017-12-31] MEDS: CLOPIDOGREL BISULFATE 75 MG TAB PO SCH (09:44)
[2017-12-31] MEDS: ISOSORBIDE MONONITRATE 60 MG TAB PO SCH (09:45)
[2017-12-31] MEDS: FUROSEMIDE 40 MG TAB PO SCH (09:45)
[2017-12-31] MEDS: CARVEDILOL 12.5 MG TAB PO SCH (09:46)
[2017-12-31] MEDS: LISINOPRIL 5 MG TAB PO SCH (09:46)
[2017-12-31] MEDS: ENOXAPARIN SOD 60 MG/0.6 ML SYRINGE SC SCH (09:47)
[2017-12-31 12:36] VITALS: BP 104/63
[2017-12-31] MEDS ORDERED: ASP81EC PO (14:05)
[2017-12-31] MEDS ORDERED: CLOP75TA28 PO (14:05)
[2017-12-31] MEDS ORDERED: FURO40TA4 PO (14:05)
[2017-12-31] MEDS ORDERED: LISI-275 PO (14:05)
[2017-12-31] MEDS ORDERED: CARV25TA55 PO (14:05)
[2017-12-31] MEDS ORDERED: ISO60SRT PO (14:05)
[2017-12-31 16:16] VITALS: BP 104/63
[2017-12-31 17:00] VITALS: BP 112/53
== END 2017-12-31 17:50 | disposition home health service (06) | DRG 280 ==
LOC: ER 20:34 → EDBD 20:34 → TELE 20:35 → TELE-CENTR 12-29 10:27
PROVIDERS: ADMIT Nurse Practitioner; ATTEND Internal Medicine
DX: I21.4 Non-ST elevation (NSTEMI) myocardial infarction (principal); I50.23 Acute on chronic systolic (congestive) heart failure; E11.9 Type 2 diabetes mellitus without complications; Z95.1 Presence of aortocoronary bypass graft; I11.0 Hypertensive heart disease with heart failure; I25.10 Atherosclerotic heart disease of native coronary artery without angina pectoris; M19.90 Unspecified osteoarthritis, unspecified site; J44.9 Chronic obstructive pulmonary disease, unspecified; I25.2 Old myocardial infarction; Z80.0 Family history of malignant neoplasm of digestive organs; Z82.49 Family history of ischemic heart disease and other diseases of the circulatory system; Z82.5 Family history of asthma and other chronic lower respiratory diseases; Z87.891 Personal history of nicotine dependence; Z83.3 Family history of diabetes mellitus; Z90.710 Acquired absence of both cervix and uterus; Z91.14 Patient's other noncompliance with medication regimen; Z91.19 Patient's noncompliance with other medical treatment and regimen; Z88.5 Allergy status to narcotic agent; Z88.0 Allergy status to penicillin; Z88.2 Allergy status to sulfonamides; Z88.8 Allergy status to other drugs, medicaments and biological substances; Z90.49 Acquired absence of other specified parts of digestive tract
CPT/HCPCS: 36415; 71045; 80053; 80307; 81001; 82962; 83735; 83880; 84484; 85025; 85379; 85610; 85730; 93005; 93306; 96372; 96374; 96375; J1815; J2270; J2405

== ENCOUNTER 2019-10-27 07:59 | Emergency (ER) | payer OTHER, MEDICAID ==
[~2019-10-27] VITALS: Ht 157.5 cm; Wt 49.9 kg
[~2019-10-27 07:59] MED LIST changes: -ACET250T3 PO; +CLOP75TA28 PO; -ERGO1CAP6 PO; -LORA10CA12 PO; -METR500T14 PO; -SUCR1TAB38 OR
[2019-10-27 08:05] VITALS: BP 114/62
[2019-10-27] MEDS ORDERED: diphenhdrAMINE HCL 25 MG CAP PO ONE (08:30)
[2019-10-27] MEDS ORDERED: methylPREDNISolone SOD SUCC 125 MG/2 ML VL IM ONE (08:30)
== END 2019-10-27 09:14 | disposition home or self-care (01) ==
LOC: ER 07:59
DX: T78.40XA Allergy, unspecified, initial encounter (principal); R22.0 Localized swelling, mass and lump, head; I25.10 Atherosclerotic heart disease of native coronary artery without angina pectoris; I11.0 Hypertensive heart disease with heart failure; I50.9 Heart failure, unspecified; E11.9 Type 2 diabetes mellitus without complications; I25.2 Old myocardial infarction; F17.210 Nicotine dependence, cigarettes, uncomplicated; Z95.1 Presence of aortocoronary bypass graft; Z79.82 Long term (current) use of aspirin; Z79.899 Other long term (current) drug therapy; Z90.49 Acquired absence of other specified parts of digestive tract; Z90.710 Acquired absence of both cervix and uterus; Z95.0 Presence of cardiac pacemaker; X58.XXXA Exposure to other specified factors, initial encounter
CPT/HCPCS: 96372; 99283; J2930

== ENCOUNTER 2020-08-05 11:02 | Emergency (ER) | payer OTHER, MEDICAID ==
[~2020-08-05] VITALS: Ht 157.5 cm; Wt 49.9 kg
[~2020-08-05 11:02] MED LIST changes: -ASP81EC PO; +ASPI-394 PO
[2020-08-05] MEDS ORDERED: diphenhdrAMINE HCL 50 MG/1 ML VL ONE (11:06)
[2020-08-05] MEDS ORDERED: methylPREDNISolone SOD SUCC 125 MG/2 ML VL ONE (11:06)
[2020-08-05] MEDS ORDERED: EPINEPHrine HCL 1 MG/1 ML AMP SC ONE (12:00)
[2020-08-05 14:34] VITALS: BP 145/64
== END 2020-08-05 14:39 | disposition home or self-care (01) ==
LOC: ER 11:02
DX: T78.3XXA Angioneurotic edema, initial encounter (principal); I11.0 Hypertensive heart disease with heart failure; I50.9 Heart failure, unspecified; E11.9 Type 2 diabetes mellitus without complications; I25.10 Atherosclerotic heart disease of native coronary artery without angina pectoris; Z90.49 Acquired absence of other specified parts of digestive tract; Z90.710 Acquired absence of both cervix and uterus; Z87.891 Personal history of nicotine dependence; X58.XXXA Exposure to other specified factors, initial encounter; Y93.89 Activity, other specified; Y92.89 Other specified places as the place of occurrence of the external cause; Y99.8 Other external cause status
CPT/HCPCS: 96372; 99283; J0171; J1200; J2930

== ENCOUNTER 2020-12-09 19:55 | Emergency (ER) | payer OTHER, MEDICAID ==
[~2020-12-09] VITALS: Ht 157.5 cm; Wt 54.4 kg
[2020-12-10 04:15] VITALS: BP 151/73
== END 2020-12-10 05:42 | disposition home or self-care (01) ==
LOC: ER 19:58
DX: R22.0 Localized swelling, mass and lump, head (principal); K05.6 Periodontal disease, unspecified
CPT/HCPCS: 70486

== ENCOUNTER 2020-12-17 11:15 | Emergency (ER) | payer OTHER, MEDICAID ==
[~2020-12-17] VITALS: Ht 157.5 cm; Wt 49.9 kg
[2020-12-17 12:36] VITALS: BP 140/61
== END 2020-12-17 13:42 | disposition home or self-care (01) ==
LOC: ER 11:15
DX: J20.9 Acute bronchitis, unspecified (principal); L20.9 Atopic dermatitis, unspecified; R07.9 Chest pain, unspecified; J44.9 Chronic obstructive pulmonary disease, unspecified; F15.10 Other stimulant abuse, uncomplicated; Z20.822 Contact with and (suspected) exposure to COVID-19; Z90.49 Acquired absence of other specified parts of digestive tract; Z90.710 Acquired absence of both cervix and uterus; Z87.891 Personal history of nicotine dependence
CPT/HCPCS: 36415; 71046; 87426; 93005

== ENCOUNTER 2021-05-14 13:34 | Emergency (ER) | payer OTHER, MEDICAID ==
[~2021-05-14] VITALS: Ht 157.5 cm; Wt 49.9 kg
[2021-05-14 15:44] VITALS: BP 123/48
[2021-05-14] MEDS ORDERED: EPINEPHrine HCL 1 MG/1 ML AMP SC ONE (16:30)
[2021-05-14] MEDS ORDERED: methylPREDNISolone SOD SUCC 125 MG/2 ML VL IM ONE (16:30)
== END 2021-05-14 17:12 | disposition home or self-care (01) ==
LOC: ER 13:34
DX: T78.3XXA Angioneurotic edema, initial encounter (principal); I50.9 Heart failure, unspecified; J44.9 Chronic obstructive pulmonary disease, unspecified; Z95.1 Presence of aortocoronary bypass graft; Z90.49 Acquired absence of other specified parts of digestive tract; Z95.0 Presence of cardiac pacemaker; Z90.710 Acquired absence of both cervix and uterus; Z87.891 Personal history of nicotine dependence; Z79.82 Long term (current) use of aspirin; Z79.01 Long term (current) use of anticoagulants; Z79.899 Other long term (current) drug therapy
CPT/HCPCS: 96372; 99284; J0171; J2930